=== PATIENT | male | born 1980 | race Caucasian/White ===

== ENCOUNTER 2019-08-05 10:03 | Outpatient (CLI) | payer OTHER, SELFPAY ==
--- NOTE | ~2019-08-05 | US_ITS ---
EXAMINATION: US soft tissue groin LT DATE: 08/05/2019 10:52 INDICATION: Mass/lump at the anterior left lower quadrant. TECHNIQUE: Multiple grayscale and Doppler ultrasound images of the region of concern at the anterior left lower quadrant and left inguinal region were obtained. COMPARISON: None FINDINGS: There is an approximately 2 x 2 cm reversible bulge of fat in the left inguinal region which occurs w ith Valsalva and subsequently spontaneously reduces. This arises medial to the left hypogastric arter y consistent with an indirect inguinal hernia. This occurs more caudally than the site indicated by t he patient is the reported bulge though is near the site of pain which the patient describes as being inferior to the bulge. No spigelian/ventral hernia appreciated in the region of concern at the anter ior left lower quadrant. IMPRESSION: 1. Small fat-containing indirect inguinal hernia occurring with Valsalva and spontaneously reducing. Reviewed, dictated and finalized at location A. TOANALYSIS TEACHER IMPRESSION: 1. Small fat-containing indirect inguinal hernia occurring with Valsalva and sp ontaneously reducing.
== END 2019-08-05 10:04 | disposition home or self-care (01) ==
LOC: ANHIMG 10:06
PROVIDERS: PCP Internal Medicine; Visit Provider Surgery
DX: R19.09 Other intra-abdominal and pelvic swelling, mass and lump (principal); K40.90 Unilateral inguinal hernia, without obstruction or gangrene, not specified as recurrent
CPT/HCPCS: 76882